=== PATIENT | female | born 1985 | race Caucasian/White ===

== ENCOUNTER 2016-12-29 06:19 | Inpatient (IN) ==
[2016-12-29] MEDS ORDERED: LR 1,000 ML IV SCH (06:21)
[2016-12-29] MEDS ORDERED: KEFZOL 1 GM/D5W 1 GM/50 ML IVPB IV PRN (06:21)
[2016-12-29] MEDS ORDERED: PEPCID IV PRN (06:21)
[2016-12-29] MEDS ORDERED: PITOCIN 30 UNITS/LR 30 UNITS/500 ML IV.SOLN IV SCH (06:21)
[2016-12-29] MEDS ORDERED: TYLENOL PO PRN (06:21)
[2016-12-29] MEDS ORDERED: ZOFRAN IV PRN (06:21)
[2016-12-29] MEDS ORDERED: STADOL IV PRN (06:21)
[2016-12-29] MEDS ORDERED: PEPCID PO PRN (06:21)
[2016-12-29] MEDS ORDERED: SODIUM CHLORIDE 0.9% INJ SCH (06:30)
[2016-12-29 07:47] LABS: MANUAL DIFF NEEDED? NO; URINE SOURCE VOIDED
[2016-12-29 07:52] LABS: BASO% 0.1 % (0.0-0.8); EOS# 0.07 X1000 (0.0-0.7); EOS% 0.8 % (0.0-10.0); HEMATOCRIT 31.4 % (37.0-47.0); HEMOGLOBIN 10.1 g/dL (12.0-16.0); IMM GRAN# 0.01 X1000 (0.0-0.04); IMM GRAN% 0.1 % (0.0-0.5); LYMPH# 1.64 X1000 (1.2-3.4); LYMPH% 18.5 % (20.5-51.1); MCH 27.4 PG (27-31); MCHC 32.2 g/dL (33-37); MCV 85.3 FL (81-99); MONO# 0.64 X1000 (0.11-0.59); MONO% 7.2 % (1.7-9.3); MPV 10.8 FL (7.4-10.4); NEUT% 73.3 % (42.2-75.2); PLT 203 X1000 (130-400); RBC 3.68 XMIL (4.2-5.4)
[2016-12-29 07:56] LABS: BILIRUBIN URINE NEGATIVE (NEGATIVE); BLOOD URINE NEGATIVE (NEGATIVE); CLARITY SL. CLOUDY (CLEAR); COLOR YELLOW; GLUCOSE URINE NEGATIVE (NEGATIVE); LEUKOCYTES URINE 2+ (NEGATIVE); NITRITE URINE NEGATIVE (NEGATIVE); PROTEIN URINE NEGATIVE (NEGATIVE); SP GRAVITY URINE 1.005; UROBILINOGEN URINE NORMAL
[2016-12-29 07:57] LABS: UR AMPHETAMINES QUAL NONE DETECTED (NONE DETECT); UR BARBITUATES QUAL NONE DETECTED (NONE DETECT); UR BENZODIAZEPIN QUAL NONE DETECTED (NONE DETECT); UR CANNABINOIDS QUAL NONE DETECTED (NONE DETECT); UR COCAINE QUAL NONE DETECTED (NONE DETECT); UR MDMA QUAL NONE DETECTED (NONE DETECT); UR METHADONE QUAL NONE DETECTED (NONE DETECT); UR METHAMPHETAMINE QUAL NONE DETECTED (NONE DETECT); UR OPIATES QUAL NONE DETECTED (NONE DETECT); UR OXYCODONE QUAL NONE DETECTED (NONE DETECT); UR PCP QUAL NONE DETECTED (NONE DETECT); UR TCA QUAL NONE DETECTED (NONE DETECT)
[2016-12-29] MEDS ORDERED: XYLOCAINE-MPF 1% INJ ONE (08:22)
[2016-12-29] MEDS ORDERED: MINERAL OIL ONE (08:23)
[2016-12-29] MEDS ORDERED: AMBIEN PO PRN (14:22)
[2016-12-29] MEDS ORDERED: PERCOCET-10 PO PRN (14:22)
[2016-12-29] MEDS ORDERED: BENADRYL PO PRN (14:22)
[2016-12-29] MEDS ORDERED: PITOCIN 20 UNITS/LR 20 UNITS/1,000 ML IV.SOLN IV SCH (14:22)
[2016-12-29] MEDS ORDERED: HYDROXYZINE IM PRN (14:22)
[2016-12-29] MEDS ORDERED: HYDROXYZINE PO PRN (14:22)
[2016-12-29] MEDS ORDERED: PITOCIN IM PRN (14:22)
[2016-12-29] MEDS ORDERED: MINERAL OIL PO PRN (14:22)
[2016-12-29] MEDS ORDERED: BOOSTRIX VACCINE IM ONE (14:22)
[2016-12-29] MEDS ORDERED: NORCO-5 PO PRN (14:22)
[2016-12-29] MEDS ORDERED: NORCO-10 PO PRN (14:22)
[2016-12-29] MEDS ORDERED: CYTOTEC PO PRN (14:22)
[2016-12-29] MEDS ORDERED: M-M-R II VACCINE SUBQ ONE (14:22)
[2016-12-29] MEDS ORDERED: PITOCIN 30 UNITS/LR 30 UNITS/500 ML IV.SOLN IV ONE (14:22)
[2016-12-29] MEDS ORDERED: PERI MEDS (DERMOPLAST/NUPERCAINAL/TUCKS) MISC PRN (14:22)
[2016-12-29] MEDS ORDERED: XYLOCAINE-MPF 1% INJ PRN (14:22)
[2016-12-29] MEDS ORDERED: BENADRYL IV PRN (14:22)
--- NOTE | 2016-12-29 14:55 | OPERATIVE NOTE ---
PROCEDURE DATE: 12/29/2016 DELIVERING PHYSICIAN: Cosmo Carolina MD. TYPE OF DELIVERY: Spontaneous controlled vaginal delivery. ANESTHESIA: IV sedation and local. FINDINGS: At 1352 a 9 pound 3 ounce female was delivered in occiput anterior presentation. Apgars were 9 at 1 minute and 9 at 5 minutes. SUMMARY: Christine Hatfiedl is a 31-year-old, 5, para 3-0-1-3, at term gestation. Her blood type is O positive. Rubella immune. Hepatitis B surface antigen, HIV, and group B strep were negative. She was brought into Labor and Delivery this morning for elective induction of labor. First examination found her to be 2 cm dilated, membranes ruptured, revealing clear fluid. Mrs. Hatfield progressed to labor without signs of distress or dystocia. She became complete and began pushing and very quickly crowned. At that point she was placed in the dorsal lithotomy position. The perineum was prepped and draped in the usual fashion. Spontaneous controlled vaginal delivery occurred. Once the infant's head was delivered, the shoulders and body were delivered without dystocia. Cord was clamped and cut. The oropharynx was bulb suctioned. Infant was handed to the nurses and pediatricians for further care and evaluation. Cord blood was obtained. Placenta was spontaneously delivered and was intact. There was a first-degree midline tear which was repaired using 2-0 Vicryl suture under local anesthesia. Blood loss approximately 200 mL. There were no complications. The patient remained in LDR recovery without difficulty. cc: Cosmo Carolina MD
[2016-12-29] MEDS: MOTRIN PO PRN (16:04)
[2016-12-29] MEDS: PERICOLACE PO SCH (20:59)
[2016-12-30] MEDS: PERCOCET-5 PO PRN ×2 (03:01→23:55)
[2016-12-30] MEDS: MOTRIN PO PRN ×3 (03:02→23:55)
[2016-12-30 06:04] LABS: HEMATOCRIT 27.1 % (37.0-47.0); HEMOGLOBIN 8.5 g/dL (12.0-16.0); MCH 26.9 PG (27-31); MCHC 31.4 g/dL (33-37); MCV 85.8 FL (81-99); MPV 11.1 FL (7.4-10.4); RBC 3.16 XMIL (4.2-5.4)
[2016-12-30] MEDS: PRECARE PO SCH ×2 (13:47)
[2016-12-30] MEDS: PERICOLACE PO SCH (20:09)
[2016-12-31 08:48] VITALS: BP 113/63
[2016-12-31] MEDS: MOTRIN PO PRN (08:56)
[2016-12-31] MEDS: PRECARE PO SCH (08:56)
== END 2016-12-31 12:12 | disposition home or self-care (01) ==
LOC: P.LD 06:19 → P.WC 16:24
PROVIDERS: ADMIT Obstetrics & Gynecology; ATTEND Obstetrics & Gynecology